=== PATIENT | female | born 1985 | race Caucasian/White ===

== ENCOUNTER 2022-03-16 14:57 | Emergency (ER) | payer MEDICAID, SELFPAY ==
[2022-03-16 15:08] VITALS: BP 130/85; PULSE 69; RESP 20; TEMP 36.8; O2SAT 98; BMI 25.6
[2022-03-16 16:05] LABS: Lactate* 1.3 mmol/L (0.5-1.9)
[2022-03-16 16:07] LABS: Basophils Absolute Auto 0.02 K/uL (0.00-0.30); Basophils Percent Auto 0.3 % (0.0-3.0); Eosinophils Absolute Auto 0.09 K/uL (0.00-0.50); Eosinophils Percent Auto 1.2 % (0.0-7.0); Hematocrit 43.3 % (33.0-51.0); Immature Granulocytes Abs Auto 0.01 K/uL (0.00-0.30); Immature Granulocytes Pct Auto 0.1 %; Lymphocytes Absolute Auto 1.81 K/uL (0.90-2.90); Lymphocytes Percent Auto 24.1 % (20-44); Mean Corpuscular HGB Conc 35 gm/dL (32-36); Mean Corpuscular Hemoglobin 31 pg (26-34); Mean Corpuscular Volume 91 fL (80-100); Monocytes Percent Auto 8.4 % (0.0-11.0); Neutrophils Absolute Auto 4.96 K/uL (1.7-7.0); Neutrophils Percent Auto 65.9 % (42.0-72.0); Platelet Count* 263 K/uL (140-440); RDW Coefficient of Variation % 10.6 % (11.5-15.5); Red Blood Count 4.78 m/uL (4.00-5.20); White Blood Count* 7.52 K/uL (4.50-11.00)
[2022-03-16 16:10] LABS: Slide Review Reflex No
--- NOTE | 2022-03-16 16:24 | ED_ITS ---
HPI - General Adult General Date Seen: 03/16/22 Chief complaint: Shortness of Breath/Dyspnea Stated complaint: Covid Day9 Short of Breath Time Seen by Provider: 03/16/22 15:16 Source: patient History of Present Illness HPI narrative: Patient is a 37-year-old woman, generally healthy, who reports being on day 9 of COVID. She says that a lot of her symptoms are improving, but she feels that the shortness of breath is getting worse. Her chest feels tight. It is hard to breathe when she is lying down. Fevers, headache, sore throat, and actually cough are all improving. She denies underlying asthma. She does not smoke. She is not having chest pain or back pain. She has not had any unusual leg pain or swelling. Denies history of blood clots for her or anyone in her family. Does not take oral contraceptives. She says that she does not understand why all of her coworkers were sick for only 5 or 6 days and she is not getting better. Related Data Home Medications Medication Instructions Recorded Confirmed fluticasone propionate 50 1 spray intranasal BID PRN 03/16/22 03/16/22 mcg/actuation nasal spray,suspension (24 Hour Allergy Relief) Allergies Allergy/AdvReac Type Severity Reaction Status Date / Time oxycodone Allergy Unknown Verified 03/16/22 17:24 Review of Systems Status of ROS: Reports: 10 or more systems reviewed and unremarkable except as noted in History and below [facility] Social History Smoking Status: Never smoker Do you use any of these nicotine containing products: None How often do you have a drink containing alcohol: never How often do you have six or more drinks on one occasion: Never AUDIT-C Alcohol total score: 0 Non-prescribed substance use: denies use Exam Narrative: Exam Narrative: Vital signs as noted above. In general, an alert, well-appearing patient. Speaks in full sentences. Head: Normocephalic, atraumatic. Eyes: Pupils are equal reactive. Extraocular movements are full. Conjunctivae are normal. ENT: Mucous membranes are moist. Throat is normal. Neck: Supple without lymphadenopathy. Heart: Regular rate and rhythm. No murmur or rub. Lungs: Clear bilaterally. No increased work of breathing, crackles or wheezes. Extremities: Well perfused. No edema. No calf tenderness. Pulses intact. Neurologic: Patient is alert and oriented to person and place. Speech is fluent. Face is symmetric. Moves all extremities equally. Affect: Normal. Skin: Warm and dry. Well perfused. Const: Vital Signs, click to edit/add: Vital Signs - 24 hr 03/16/22 15:08 Temperature 98.3 F Pulse Rate [Right Pulse Oximeter] 69 Respiratory Rate 20 Blood Pressure [Ri ght Upper Arm] 130/85 Pulse Oximetry 98 Oxygen Delivery Me thod Room Air Documenting provider has reviewed patient's vital signs: yes Course Course Hospital Course: Discussed with the patient and her that COVID certainly can last 10-14 days, shortness of breath can be a normal part of the experience of this virus. However, we will do some evaluation here to ensure that she is not dealing with a complication of COVID such as a bacterial pneumonia or pulmonary embolism. Labs at this time show white blood cell count of 7.5, diff is unremarkable. Wi ll await D-dimer prior to selecting chest imaging. Exam is reassuring, lungs are clear, O2 sats are normal. She does not show any evidence of increased work of breathing. Labs are overall fairly unremarkable. White count is normal, hemoglobin is 15. Metabolic panel is nor, lactate is 1.3. LFT show very minimal elevations in transaminases with an AST of 38 and an ALT of 53. Alk-phos and bilirubin are normal. CRP is less than 0.5. Her D-dimer was mildly elevated at 0.65, of doubtful significance but given her complaints of worsening shortness of breath in the setting of COVID, I did elect to do a CT scan with contrast. By my review this did not show evidence of significant COVID pneumonia, consolidated pneumonia, or pulmonary embolism. The final radiology report was likewise negat jamin for PE or infiltrate. I have reviewed all of this with her. At this time, I think she is still simply symptomatic from COVID. Discussed that this can take 10-14 days for the acute illness to pass, and sometimes longer for people to feel back to normal. She is given a note to have more time off of work. Follow up with primary care if not improving over the next week. Return at any time for acute worsening. Vital Signs Vital signs: Initial Vital Signs Temperature 98.3 F 03/16/22 15:08 Temperature Source Temporal Artery Scan 03/16/22 15:08 Pulse Rate 69 03/16/22 15:08 Respiratory Rate 20 03/16/22 15:08 Blood Pressure 130/85 03/16/22 15:08 Blood Pressure Mean 100 03/16/22 15:08 Blood Pressure Position Sitting 03/16/22 15:08 Pulse Oximetry 98 03/16/22 15:08 Oxygen Delivery Method 03/16/22 15:08 Vital Signs Temperature 98.3 F 03/16/22 15:08 Pulse Rate 69 03/16/22 15:08 Respiratory Rate 20 03/16/22 15:08 Blood Pressure 130/85 03/16/22 15:08 Pulse Oximetry 98 03/16/22 15:08 Oxygen Delivery Method 03/16/22 15:08 Temperature 98.3 F 03/16/22 15:08 Pulse Rate 69 03/16/22 15:08 Respiratory Rate 20 03/16/22 15:08 Blood Pressure 130/85 03/16/22 15:08 Pulse Oximetry 98 03/16/22 15:08 Oxygen Delivery Method 03/16/22 15:08 Medical Decision Making Lab Data Labs: Lab Results 03/16/22 03/16/22 03/16/22 Range/Units 15:55 15:55 15:55 WBC 7.52 (4.50-11.00) K/uL RBC 4.78 (4.00-5.20) m/uL Hgb 15.0 (12.0-16.0) gm/dL Hct 43.3 (33.0-51.0) % MCV 91 (80-100) fL MCH 31 (26-34) pg MCHC 35 (32-36) gm/dL RDW Coeff of Chago 10.6 L (11.5-15.5) % Plt Count 263 (140-440) K/uL Neut % (Auto) 65.9 (42.0-72.0) % Lymph % (Auto) 24.1 (20-44) % Cassia % (Auto) 8.4 (0.0-11.0) % Eos % (Auto) 1.2 (0.0-7.0) % Baso % (Auto) 0.3 (0.0-3.0) % Neut # (Auto) 4.96 (1.7-7.0) K/uL Lymph # (Auto) 1.81 (0.90-2.90) K/uL Cassia # (Auto) 0.60 (0.00-0.90) K/UL Eos # (Auto) 0.09 (0.00-0.50) K/uL Baso # (Auto) 0.02 (0.00-0.30) K/uL Abs Immat Gran (auto) 0.01 (0.00-0.30) K/uL Imm/Tot Granulo (auto) 0.1 % D-Dimer Quant (PE/DVT) 0.65 H (0.00-0.50) ug/ml Sodium 139 (135-149) mmol/L Potassium 3.6 (3.6-5.1) mmol/L Chloride 104 (96-114) mmol/L Carbon Dioxide 21 (20-32) mmol/L BUN 11 (5-24) mg/dL Creatinine 0.6 (0.5-1.5) mg/dL Estimated Creat Clear 99.56 Estimated GFR 117 ml/min Glucose 103 (60-115) mg/dL Lactate (0.5-1.9) mmol/L Calcium 10.0 (8.4-10.6) mg/dL Total Bilirubin 0.5 (0.1-1.5) mg/dL Direct Bilirubin 0.1 (0.0-0.5) mg/dL AST 38 H (12-35) U/L ALT 53 H (4-35) U/L Alkaline Phosphatase 85 (40-150) U/L C-Reactive Protein < 0.5 L (0.5-1.0) mg/dL Total Protein 8.3 (6.0-8.3) g/dL Albumin 5.0 (3.3-5.0) g/dL 03/16/22 Range/Units 15:55 WBC (4.50-11.00) K/uL RBC (4.00-5.20) m/uL Hgb (12.0-16.0) gm/dL Hct (33.0-51.0) % MCV (80-100) fL MCH (26-34) pg MCHC (32-36) gm/dL RDW Coeff of Chago (11.5-15.5) % Plt Count (140-440) K/uL Neut % (Auto) (42.0-72.0) % Lymph % (Auto) (20-44) % Cassia % (Auto) (0.0-11.0) % Eos % (Auto) (0.0-7.0) % Baso % (Auto) (0.0-3.0) % Neut # (Auto) (1.7-7.0) K/uL Lymph # (Auto) (0.90-2.90) K/uL Cassia # (Auto) (0.00-0.90) K/UL Eos # (Auto) (0.00-0.50) K/uL Baso # (Auto) (0.00-0.30) K/uL Abs Immat Gran (auto) (0.00-0.30) K/uL Imm/Tot Granulo (auto) % D-Dimer Quant (PE/DVT) (0.00-0.50) ug/ml Sodium (135-149) mmol/L Potassium (3.6-5.1) mmol/L Chloride (96-114) mmol/L Carbon Dioxide (20-32) mmol/L BUN (5-24) mg/dL Creatinine (0.5-1.5) mg/dL Estimated Creat Clear Estimated GFR ml/min Glucose (60-115) mg/dL Lactate 1.3 (0.5-1.9) mmol/L Calcium (8.4-10.6) mg/dL Total Bilirubin (0.1-1.5) mg/dL Direct Bilirubin (0.0-0.5) mg/dL AST (12-35) U/L ALT (4-35) U/L Alkaline Phosphatase (40-150) U/L C-Reactive Protein (0.5-1.0) mg/dL Total Protein (6.0-8.3) g/dL Albumin (3.3-5.0) g/dL Discharge Plan Discharge Clinical Impression: COVID-19 Patient Disposition: Home, Self-Care Condition: Stable Instructions: COVID-19 (Coronavirus Disease 2019) (ED) Additional Instructions: Anticipate gradual improvement over the next week or 2. Follow up with primary care as needed. Return for significant worsening symptoms. Prescriptions: No Action fluticasone propionate [24 Hour Allergy Relief] 50 mcg/actuation spray,suspension 1 spray intranasal BID PRN Rx Instructions: administer into each nostril Follow Up/Referrals: Renita Spicer MD [Primary Care Provider] - Stand Alone Forms: [employer] Instructions
[2022-03-16 16:40] LABS: Chloride* 104 mmol/L (96-114)
[2022-03-16 16:41] LABS: Potassium* 3.6 mmol/L (3.6-5.1); Sodium* 139 mmol/L (135-149)
[2022-03-16 16:42] LABS: D Dimer Quantitative* 0.65 ug/ml (0.00-0.50)
[2022-03-16 16:43] LABS: Aspartate Amino Transferase* 38 U/L (12-35); Bilirubin Direct* 0.1 mg/dL (0.0-0.5); Bilirubin Total* 0.5 mg/dL (0.1-1.5); Carbon Dioxide* 21 mmol/L (20-32); Creatinine* 0.6 mg/dL (0.5-1.5); Est. Creatinine Clearance* 99.56; Estimated Glomerular Filt Rate 117 ml/min; Total Protein* 8.3 g/dL (6.0-8.3)
[2022-03-16 16:44] LABS: Alanine Aminotransferase* 53 U/L (4-35); Alkaline Phosphatase* 85 U/L (40-150); Blood Urea Nitrogen* 11 mg/dL (5-24); Glucose* 103 mg/dL (60-115)
[2022-03-16 16:49] LABS: C Reactive Protein* < 0.5 mg/dL (0.5-1.0)
--- NOTE | 2022-03-16 16:53 | CRLHL7_ITS ---
For Patients: As a result of the Century Cures Act, medical imaging exams and procedure reports are released immediately into your electronic medical record. You may view this report before your referring provider. If you have questions, please contact your health care provider. INDICATION: Shortness of breath. TECHNIQUE: CT chest PE was acquired with 95 cc Isovue 370 IV contrast. COMPARISON: None. FINDINGS: Heart and vasculature: Contrast opacification of the pulmonary arterial tree is adequate. No sign of pulmonary embolism. Heart size is normal. Thoracic aorta and pulmonary artery are normal in caliber. Lungs and pleura: No suspicious nodules or infiltrates. Scattered atelectasis. No pleural effusions, pleural thickening, or pneumothorax. Lymph nodes/mediastinum: No mediastinal, hilar, or axillary adenopathy. Chest wall: No masses. Upper abdomen: No acute or significant findings. Bones: Unremarkable for age. IMPRESSION: No pulmonary embolism as questioned. No focal consolidations. Please note that all CT scans at this facility use dose modulation, iterative reconstruction, and/or weight-based dosing when appropriate to reduce radiation dose to as low as reasonably achievable. Dictated by Herve Nava MD @ 03/16/2022 6:03:22 PM (Electronically Signed)
[2022-03-16] MEDS: 0.9 % SODIUM CHLORIDE 500 ML 500 ML IV (17:36)
[2022-03-16 18:50] VITALS: BP 116/93; PULSE 78; RESP 16; O2SAT 97
== END 2022-03-16 18:57 | disposition home or self-care (01) ==
PROVIDERS: Emergency Provider Emergency Medicine; PCP Family Medicine
DX: U07.1 COVID-19 (principal)
CPT/HCPCS: 36415; 71260; 80048; 80076; 83605; 85025; 85379; 86140; 99284; J7120; Q9967